=== PATIENT | male | born 1985 ===

== ENCOUNTER 2018-03-03 17:57 | Emergency (ER) | payer MEDICAID, OTHER ==
[2018-03-03 18:05] VITALS: BP 168/83
--- NOTE | 2018-03-03 18:21 | UC ---
General HPI - HPI Summary HPI Summary: Pt presents to with . Pt states approx 4pm was walking to store with cousin. Pt state he thinks he had a seizure. Pt states he does not know what happened but his cousin states he started to stare and became weak. Pt states his cousin helped him and he "did not fall." Pt states when he "came around" he was sitting on the floor. No seizure activity reported. Pt has had a h/o seizures - last 2 years ago. Pt states in the past his seizures were from synthetic marijuana - has not used recently. Pt states he is currently on Suboxone x 1 month. Pt states it doesn't help - this morning he injected it - approx 8am. Pt denies using other sx. No injury, no incontience. Pt states does not have a neurologist currently. Pt states was prevously given Rx for Keppra - but did not take it. Pt denies any injury. reports mild acuña. no recent illness. no fever chills. no cp, sob, abd pain. No acuña, vision change Pt's medications reviewed this visit - History of Current Complaint Chief Complaint: UCSeizure Stated Complaint: POSSIBLE SIEZURE Time Seen by Provider: 03/03/18 18:04 Hx Obtained From: Patient, Family/Therapeutic Mentor Onset/Duration: Sudden Onset Timing: Constant Onset Severity: Moderate Current Severity: Mild Pain Intensity: 3 - Allergy/Home Medications Allergies/Adverse Reactions: Allergies Allergy/AdvReac Type Severity Reaction Status Date / Time No Known Allergies Allergy Verified 03/03/18 18:05 Home Medications: Home Medications Buprenorphine/Naloxone SL TAB* [Suboxone 8-2 mg SL TAB*] 1 tab.sl SL DAILY 03/03 [History Confirmed 03/03/18] PMH/Surg Hx/FS Hx/Imm Hx Previously Healthy: Yes Psychological History: Depression, Other Other Psychological History: substance dependence - Surgical History Surgical History: None - Social History Occupation: Unemployed - starting [email or web address].coming this week Lives: With Family Alcohol Use: None Substance Use Type: Other - h/o heroin; suboxone Smoking Status (MU): Heavy Every Day Tobacco Smoker Review of Systems Constitutional: Negative Skin: Negative Eyes: Negative ENT: Negative Respiratory: Negative Cardiovascular: Negative Gastrointestinal: Negative Genitourinary: Negative Neurological: Headache, Other - possible sz All Other Systems Reviewed And Are Negative: Yes Physical Exam Triage Information Reviewed: Yes Appearance: Well-Appearing, No Pain Distress, Well-Nourished Vital Signs: Initial Vital Signs Temp 97.5 F 03/03/18 18:01 Pulse 102 03/03/18 18:01 Resp 16 03/03/18 18:01 BP 168/83 03/03/18 18:01 Pulse Ox 97 03/03/18 18:01 Vital Signs Reviewed: Yes Eye Exam: Normal Eyes: Positive: Conjunctiva Clear ENT Exam: Normal ENT: Positive: Normal ENT inspection, Hearing grossly normal, Pharynx normal, TMs normal, Uvula midline Dental Exam: Normal Neck exam: Normal Neck: Positive: Supple, Nontender, No Lymphadenopathy Respiratory Exam: Normal Respiratory: Positive: Lungs clear, Normal breath sounds, No respiratory distress, No accessory muscle use Cardiovascular Exam: Normal Cardiovascular: Positive: RRR, No Murmur Abdominal Exam: Normal Abdomen Description: Positive: Nontender, No Organomegaly, Soft Bowel Sounds: Positive: Present Musculoskeletal Exam: Normal Musculoskeletal: Positive: Strength Intact Neurological Exam: Normal Neurological: Positive: Alert, Muscle Tone Normal Psychological Exam: Normal Psychological: Positive: Normal Response To Family Skin: Positive: Other - scars b/l forearms -no acute injuries Diagnostics - EKG Cardiac Rate: NL Cardiac Rhythm: Sinus: Normal Ectopy: None ST Segment: Normal Course/Dx - Course Course Of Treatment: Pt with epsiode of mental status change approx 1 hour [employer]AR TESTER. Pt with h/o grandmal sz - no sz activity noted during event. Pt is atbaseline but reports mild ACUÑA. Pt with a h/o substance use - injected suboxone this am but denies substance use at time of event. EKG non diagnostic for acute process FSBG 112. Recommend pt to ED for further evaluation and treatment. Pt requesitng [facility] - requesting drive. spoke with MAHENDRA Godoy - expecting pt. pt notified may be 2hour wait, no neurology services if indicated. pt states understanding and agreement [facility] plan. will d/w with plan for ED evaluations - Differential Dx - Multi-Symptom Provider Diagnoses: mental status change resolved Discharge - Sign-Out/Discharge Documenting (check all that apply): Discharge - Discharge Plan Condition: Stable Disposition: HOME Patient Education Materials: Altered Mental Status (ED) Referrals: Janelle Marina PA [Physician [employer] Beauty [employer] Assistant] - Additional Instructions: After discussion, the doctor that evaluated you today recommends you go to the emergency department for further evaluation. [facility] are [facility]. You are aware there is a prolonged wait today. Go directly to the emergency department. It is also very important you keep your appointment with the [facility] as previously scheduled Do NOT drive, operate machinery, drink alcohol, swim alone, or climb heights until you are seen in follow-up. - Billing Disposition and Condition Condition: STABLE Disposition: HOME
== END 2018-03-03 18:35 | disposition home or self-care (01) ==
LOC: UCCORT 17:57
DX: R41.82 Altered mental status, unspecified (principal); R51 Headache; R56.9 Unspecified convulsions; F17.200 Nicotine dependence, unspecified, uncomplicated
CPT/HCPCS: 93005; 99212; G0463